=== PATIENT | male | born 1990 | race Hispanic/Latino ===

== ENCOUNTER 2017-12-07 14:35 | Emergency (ER) | payer BC ==
[2017-12-07 14:43] VITALS: PULSE 69; O2SAT 98
--- NOTE | 2017-12-07 15:32 | C.PDOC ---
History Of Present Illness 27 y/o male patient presents to the ED with CC of persistent CARRANZA, and nausea for 2 weeks. He also claims left ear discomfort. Patient had head injury 2 weeks ago due to being struck by metal garbage can lid. Patient wasnt sure if he lost consciousness. He was evaluated by [facility] in [facility]. He states that no CT scan was done. Patient drinks 3-4x a week because It numbed the pain. His last EtOH drink was 3 days ago. Denies ear discharge or hearing loss, and other associated injury or sx. CO PERSIST CARRANZA, NAUSEA X 2 WEEKS. SP HEAD INJURY 2 WEEKS, PS HEAD STRUCK BY METAL GARBAGE CAN LID. ?LOC. RHIANNON @ [facility] IN [facility], PS NO CT SCAN DONE. PS DRINK 3-4X/WEEK "BUT IT NUMBED THE PAIN". LAST ETOH 3 DAYS AGO. +L EAR DISCOMFORT, NO DC OR HEARING LOSS. DENIES OTHER ASSOC INJURY OR SX EXAM NAD HEENT NO PHOTOPHOBIA; B/L TM CLEAR WNL; HEALING SCALP LAC TOP OF HEAD NONTEND NECK SUPPLE NONTENDER NEURO AO3, NO FOCAL DEF PSYCH CALM COOPERATIVE NO ACUTE INTOX/WITHDRAWAL REMAINDER NEG MDM PROBABLE CONCUSSION SYNDROME. CT RO BLEED, FX. Time Seen by Provider: 12/07/17 15:15 Chief Complaint (Nursing): Headache History Per: Patient History/Exam Limitations: no limitations Onset/Duration Of Symptoms: Days Patient States: Struck With Object Past Medical History Vital Signs: Last Vital Signs Temp 98.2 F 12/07/17 14:40 Pulse 69 12/07/17 14:40 Resp 16 12/07/17 14:40 BP 135/90 12/07/17 14:40 Pulse Ox 98 12/07/17 18:01 Family History: States: No Known Family Hx - Social History Hx Alcohol Use: Yes Hx Substance Use: No - Immunization History Hx Tetanus Toxoid Vaccination: No Hx Influenza Vaccination: No Hx Pneumococcal Vaccination: No Review Of Systems Except As Marked, All Systems Reviewed And Found Negative. ENT: Positive for: Other (+L ear discomfort ). Negative for: Ear Discharge Gastrointestinal: Positive for: Nausea Neurological: Positive for: Headache. Negative for: Weakness, Confusion, Altered Mental Status, Dizziness Physical Exam - Physical Exam Appears: Non-toxic, No Acute Distress Skin: Normal Color, Warm, Dry Head: Atraumatic, Normacephalic, Laceration (healing on top of head, nontender) Eye(s): bilateral: Normal Inspection, Other (no photophobia ) Ear(s): Bilateral: Normal Nose: Normal Oral Mucosa: Moist Lips: Normal Appearing Neck: Normal, Normal ROM, Supple Neurological/Psych: Oriented x3, Normal Speech, Other (calm, cooperative, no acute intox/withdrawal, no focal deficits) ED Course And Treatment O2 Sat by Pulse Oximetry: 98 (RA) Pulse Ox Interpretation: Normal - CT Scan/US CT Head Other Rad Studies (CT/US): Read By Radiologist, Radiology Report Reviewed CT/US Interpretation: Accession No. : [id number]. Patient Name / ID : JESSICA BROWNING / [id number]. Exam Date : 12/07/2017 16:46:14 ( Approved ). Study Comment : Sex / Age : M / 27Y. Creator : Matthew Jaeger. Dictator : Abdi Choudhary MD. Knot Tying Operator : Retail Marketing Manager : Abdi Choudhary MD. Approver2 : Report Date : 12/07/2017 16:45:58. My Comment : . PROCEDURE: CT HEAD WITHOUT CONTRAST. HISTORY: TRAUMA. COMPARISON: None available. TECHNIQUE: Axial computed tomography images were obtained through the head/brain without intravenous contrast. Radiation dose: Total exam DLP = 955.18 mGy-cm. This CT exam was performed using one or more of the following dose reduction techniques: Automated exposure control, adjustment of the mA and/or kV according to patient size, and/or use of iterative reconstruction technique. FINDINGS: HEMORRHAGE: No intracranial hemorrhage. BRAIN: Normal thomas-white matter differentiation and density are appreciated throughout the cerebrum and cerebellum with the brainstem appearing unremarkable as well. There is no mass effect. There is no suspicious extra- axial fluid collection and the midline brain anatomy appears diffusely unremarkable. VENTRICLES: Unremarkable. No hydrocephalus. CALVARIUM: No destructive bony lesion or displaced fracture identified including through the skullbase. PARANASAL SINUSES: Unremarkable as visualized. No significant inflammatory changes. MASTOID AIR CELLS: Unremarkable as visualized. No inflammatory changes. OTHER FINDINGS: None. IMPRESSION: Unremarkable noncontrast head CT. Progress - Time Time: 17:21 - Re-Evaluation Re-evaluation Note: 12/07/17 17:59 Patient reports improvement in symptoms. He remains AAOx3, afebrile, with steady gait and clear speech. - Data Reviewed Data Reviewed: Diagnostic imaging Medical Decision Making Medical Decision Making: Patient has probable concussion syndrome. Imaging ordered CT r/o bleed, fx. Informed patient of negative Head CT and counseled regarding diagnosis of concussion. Patient will be discharged home with Tylenol, Ibuprofen, and Reglan. Disposition Counseled Patient/Family Regarding: Studies Performed, Diagnosis, Need For Followup, Rx Given - Disposition Referrals: [facility] [Outside] [facility] [Outside] Michael Stone MD [Staff Provider] - Disposition: HOME/ ROUTINE Disposition Time: 17:30 Condition: IMPROVED Prescriptions: Acetaminophen [Tylenol Extra Strength] 2 tab PO Q6 #30 tablet Ibuprofen [Motrin] 600 mg PO Q6 #30 tab Metoclopramide [Reglan] 1 tab PO TID PRN #25 tab PRN Reason: Nausea/Vomiting Instructions: Concussion, Adult (DC) Forms: [facility] (Thai) - Clinical Impression Clinical Impression: Concussion syndrome - Scribe Statement The provider has reviewed the documentation as recorded by the Scribe (Partida Do) All medical record entries made by the Scribe were at my direction and personally dictated by me. I have reviewed the chart and agree that the record accurately reflects my personal performance of the history, physical exam, medical decision making, and the department course for this patient. I have also personally directed, reviewed, and agree with the discharge instructions and disposition.
--- NOTE | 2017-12-07 16:59 | CT ---
PROCEDURE: CT HEAD WITHOUT CONTRAST. HISTORY: TRAUMA COMPARISON: None available. TECHNIQUE: Axial computed tomography images were obtained through the head/brain without intravenous contrast. Radiation dose: Total exam DLP = 955.18 mGy-cm. This CT exam was performed using one or more of the following dose reduction techniques: Automated exposure control, adjustment of the mA and/or kV according to patient size, and/or use of iterative reconstruction technique. FINDINGS: HEMORRHAGE: No intracranial hemorrhage. BRAIN: Normal thomas-white matter differentiation and density are appreciated throughout the cerebrum and cerebellum with the brainstem appearing unremarkable as well. There is no mass effect. There is no suspicious extra-axial fluid collection and the midline brain anatomy appears diffusely unremarkable. VENTRICLES: Unremarkable. No hydrocephalus. CALVARIUM: No destructive bony lesion or displaced fracture identified including through the skullbase. PARANASAL SINUSES: Unremarkable as visualized. No significant inflammatory changes. MASTOID AIR CELLS: Unremarkable as visualized. No inflammatory changes. OTHER FINDINGS: None. IMPRESSION: Unremarkable noncontrast head CT.
[2017-12-07 18:06] VITALS: BP 109/72; RESP 18; TEMP 98.6
== END 2017-12-07 17:57 | disposition home or self-care (01) ==
LOC: C.ER 14:35
DX: F07.81 Postconcussional syndrome (principal)